=== PATIENT | male | born 1990 | race Caucasian/White ===

== ENCOUNTER 2020-02-25 01:38 | Emergency (ER) | payer BC ==
[2020-02-25 01:50] VITALS: BP 132/82
[2020-02-25 02:21] LABS: Basophils % (Auto) 0.3 % (0.0-1.8); Eosinophils % (Auto) 0.4 % (0.0-4.3); Hematocrit 46.5 % (35.5-45.6); Hemoglobin 15.4 gm/dl (11.8-15.2); Lymphocytes # (Auto) 1.2 K/mm3 (1.2-5.4); Lymphocytes % (Auto) 9.1 % (13.4-35.0); Mean Corpuscular HGB Conc 33 % (32-34); Mean Corpuscular Volume 93 fl (84-94); Monocytes # (Auto) 0.4 K/mm3 (0.0-0.8); Platelet Count 344 K/mm3 (140-440); Red Cell Distribution Width 12.3 % (13.2-15.2)
[2020-02-25 02:40] LABS: BUN/Creatinine Ratio 14; Blood Urea Nitrogen 10 mg/dL (9-20); Calcium 9.5 mg/dL (8.4-10.2); Hemolysis Index 16
--- NOTE | 2020-02-25 03:04 | XRay Report ---
CHEST 1 VIEW 02/25/2020 2:32 AM INDICATION / CLINICAL INFORMATION: Chest Pain. COMPARISON: None available. FINDINGS: SUPPORT DEVICES: None. HEART / MEDIASTINUM: No significant abnormality. LUNGS / PLEURA: No significant pulmonary or pleural abnormality. No pneumothorax. ADDITIONAL FINDINGS: No significant additional findings. IMPRESSION: 1. No acute findings. Signer Name: Kimberly Mott MD Signed: 02/25/2020 2:59 AM Workstation Name: [id number]
[2020-02-25] MEDS ORDERED: predniSONE 20 MG TAB PO ONE (03:06)
[2020-02-25] MEDS ORDERED: ACETAMINOPEN W/CODEINE 120-12MG ORAL LIQD 5 ML PO ONE (03:06)
--- NOTE | 2020-02-25 03:22 | Emergency Department Report ---
Minor Respiratory - HPI Chief Complaint: Chest Pain Stated Complaint: CP,CHILLS Time Seen by Provider: 02/25/20 02:52 Severity: moderate Minor Respiratory: Yes Able to Tolerate Fluids, Yes Chest Pain, No Rhinorrhea, No Sore Throat, No Ear Pain, No Cough, No Sick Contacts, No Hemoptysis, No Shortness of Breath, No Fever Other History: This is a 29-year-old male with no history of asthma who presents the ED complaining of left-sided chest pain for the past 10 days. Patient states that he is also been experiencing fever chills patient denies coughing states that he is only had a little bit of cough. Patient denies any sick contacts, fever. Patient does note that he has been taking Adali-Accident cold with some relief. ED Review of Systems ROS: Stated complaint: CP,CHILLS Other details as noted in HPI Comment: All other systems reviewed and negative ED Past Medical Hx - Past Medical History Previous Medical History?: Yes Hx Hypertension: Yes - Surgical History Past Surgical History?: Yes Additional Surgical History: B/L LE - Social History Smoking Status: Never Smoker Substance Use Type: None - Medications Home Medications: Home Medications Medication Instructions Recorded Confirmed Last Taken Type Acetamin/Codeine 120-12Mg/5 ml 5 ml PO TID PRN #80 ml 02/25/20 Unknown Rx [Tylenol/Codeine] Minor Respiratory Exam - Exam General: Vital signs noted. No distress. Alert and acting appropriately. HEENT: Yes Moist Mucous Membranes, No Pharyngeal Erythema, No Pharyngeal Exudates, No Rhinorrhea, No Conjuctival Injection, No Frontal Tenderness, No Maxillary Tenderness Ear: Neither TM Bulge, Neither TM Erythema, Neither EAC Pain, Neither EAC Discharge Neck: Yes Supple, No Adenopathy Lungs: Yes Good Air Exchange, No Wheezes, No Ronchi, No Stridor, No Cough, No Labored Respirations, No Retractions, No Use of Accessory Muscles, No Other Abnormal Lung Sounds Heart: Yes Regular, No Murmur Abdomen: Yes Normal Bowel Sounds, No Tenderness, No Peritoneal Signs Skin: No Rash, No Edema Neurologic: Alert and oriented, no deficits. Musculoskeletal: Unremarkable. ED Course Vital Signs 02/25/20 02/25/20 01:45 01:46 Temperature 98.4 F Pulse Rate 102 H 103 H Respiratory 18 Rate Blood Pressure 132/82 O2 Sat by Pulse 95 95 Oximetry ED Medical Decision Making - Lab Data Result diagrams: 02/25/20 01:55 02/25/20 01:55 Laboratory Last Values WBC 12.9 K/mm3 (4.5-11.0) H 02/25/20 01:55 RBC 5.00 M/mm3 (3.65-5.03) 02/25/20 01:55 Hgb 15.4 gm/dl (11.8-15.2) H 02/25/20 01:55 Hct 46.5 % (35.5-45.6) H 02/25/20 01:55 MCV 93 fl (84-94) 02/25/20 01:55 MCH 31 pg (28-32) 02/25/20 01:55 MCHC 33 % (32-34) 02/25/20 01:55 RDW 12.3 % (13.2-15.2) L 02/25/20 01:55 Plt Count 344 K/mm3 (140-440) 02/25/20 01:55 Lymph % (Auto) 9.1 % (13.4-35.0) L 02/25/20 01:55 Stanly % (Auto) 3.0 % (0.0-7.3) 02/25/20 01:55 Eos % (Auto) 0.4 % (0.0-4.3) 02/25/20 01:55 Baso % (Auto) 0.3 % (0.0-1.8) 02/25/20 01:55 Lymph # 1.2 K/mm3 (1.2-5.4) 02/25/20 01:55 Stanly # 0.4 K/mm3 (0.0-0.8) 02/25/20 01:55 Eos # 0.0 K/mm3 (0.0-0.4) 02/25/20 01:55 Baso # 0.0 K/mm3 (0.0-0.1) 02/25/20 01:55 Seg Neutrophils % 87.2 % (40.0-70.0) H 02/25/20 01:55 Seg Neutrophils # 11.2 K/mm3 (1.8-7.7) H 02/25/20 01:55 Sodium 139 mmol/L (137-145) 02/25/20 01:55 Potassium 3.9 mmol/L (3.6-5.0) 02/25/20 01:55 Chloride 96.9 mmol/L (98-107) L 02/25/20 01:55 Carbon Dioxide 24 mmol/L (22-30) 02/25/20 01:55 Anion Gap 22 mmol/L 02/25/20 01:55 BUN 10 mg/dL (9-20) 02/25/20 01:55 Creatinine 0.7 mg/dL (0.8-1.5) L 02/25/20 01:55 Estimated GFR > 60 ml/min 02/25/20 01:55 BUN/Creatinine Ratio 14 % 02/25/20 01:55 Glucose 133 mg/dL (75-100) H 02/25/20 01:55 Calcium 9.5 mg/dL (8.4-10.2) 02/25/20 01:55 Troponin T < 0.010 ng/mL (0.00-0.029) 02/25/20 01:55 - EKG Data EKG shows normal: sinus rhythm Rate: normal - EKG Data Interpretation: normal EKG - Radiology Data Radiology results: report reviewed, image reviewed CHEST 1 VIEW 02/25/2020 2:32 AM INDICATION / CLINICAL INFORMATION: Chest Pain. COMPARISON: None available. FINDINGS: SUPPORT DEVICES: None. HEART / MEDIASTINUM: No significant abnormality. LUNGS / PLEURA: No significant pulmonary or pleural abnormality. No pneumothorax. ADDITIONAL FINDINGS: No significant additional findings. IMPRESSION: 1. No acute findings. Signer Name: Kimberly Mott MD Signed: 02/25/2020 2:59 AM Workstation Name: [id number] Transcribed By: DT Dictated By: Red Mott MD Electronically Authenticated By: Red Mott MD Signed Date/Time: 02/25/20 0259 - Medical Decision Making This 29-year-old male healthy looking male not ill-appearing who presents with chest pain most likely secondary to bronchitis no costochondritis Chest x-ray was ordered chest x-ray negative, labs completed mild leukocytosis otherwise within normal limits findings Discussed findings with the patient. Discussed vitamin C and zinc, hydration, monitoring symptoms. Discussed continue Tylenol as needed for pain or fever if presented Patient was in no acute or respiratory distress throughout ED stay. I did not witness coughing Discussed with patient to follow-up with primary care physician in 3 days. I discussed with patient if he has any worsening symptoms or new onset of symptoms to return to ED immediately Critical care attestation.: If time is entered above; I have spent that time in minutes in the direct care of this critically ill patient, excluding procedure time. ED Disposition Clinical Impression: Upper respiratory infection, Bronchitis Disposition: DC- TO HOME OR SELFCARE Is pt being admited?: No Does the pt Need Aspirin: No Condition: Stable Instructions: Chronic Bronchitis (ED), Viral Syndrome (ED) Additional Instructions: Make sure to follow up with the primary care physician as discussed. Take all your medications as you've been prescribed. If you have any worsening symptoms or develop new symptoms please return to ED immediately. Prescriptions: Acetamin/Codeine 120-12Mg/5 ml [Tylenol/Codeine] 5 ml PO TID PRN #80 ml PRN Reason: Pain Referrals: PRIMARY CARE, [Primary Care Provider] - 3-5 Days [facility] [Outside] - 3-5 Days [facility] [Outside] - 3-5 Days Forms: Accompanied Note, Work/School Release Form(ED) Time of Disposition: 03:55
== END 2020-02-25 04:15 | disposition home or self-care (01) ==
LOC: ED 01:38
DX: J40 Bronchitis, not specified as acute or chronic (principal); J06.9 Acute upper respiratory infection, unspecified; I10 Essential (primary) hypertension
CPT/HCPCS: 36415; 71045; 80048; 84484; 85025; 93005; 93010; 99284; J7512